=== PATIENT | female | born 1995 | race Caucasian/White ===

== ENCOUNTER 2021-04-12 12:22 | Emergency (ER) | payer SELFPAY | END 2021-04-12 15:19 | disposition left against medical advice (07) | LOC: CSHERS 12:22 | DX: Z53.21 Procedure and treatment not carried out due to patient leaving prior to being seen by health care provider (principal) ==

== ENCOUNTER 2024-07-04 15:16 | Outpatient (CLI) | payer OTHER ==
[2024-07-04 15:54] LABS: Hematocrit 40.2 % (34.9-44.5)
[2024-07-04 16:34] LABS: BHCG - Serum Negative (NEGATIVE); Pregs Control Background? CLEAR/WHITE (CLR/WHITE); Pregs Control Bar Appear? YES (CONTROL BAR)
== END 2024-07-04 15:17 | disposition home or self-care (01) ==
LOC: CSHLAB 15:16
PROVIDERS: ATTEND Otolaryngology Plastic Surgery within the Head & Neck
DX: Z01.812 Encounter for preprocedural laboratory examination (principal); J34.3 Hypertrophy of nasal turbinates; J32.2 Chronic ethmoidal sinusitis; J32.3 Chronic sphenoidal sinusitis
CPT/HCPCS: 84703; 85014

== ENCOUNTER 2024-07-10 08:39 | Day surgery (SDC) | payer OTHER ==
[2024-07-04 15:34] VITALS: BMI 48.8
[2024-07-10] MEDS ORDERED: Mupirocin 2% Ointment 22 GM Tube ONE (09:43)
[2024-07-10] MEDS ORDERED: AFRIN NASAL MIST 15 ML BOT ONE ×2 (09:43→10:43)
[2024-07-10] MEDS ORDERED: Lidocaine 1% w/Epinephrine 1:200K 30 ML VIAL ONE (09:43)
[2024-07-10] MEDS ORDERED: Rocuronium Bromide 10 MG/ML (10ML VIAL) ONE (10:32)
[2024-07-10] MEDS ORDERED: PROPOFOL 40 ML ONE (10:32)
[2024-07-10] MEDS ORDERED: Lidocaine 1% PF 5 ML VIAL ONE (10:32)
[2024-07-10] MEDS ORDERED: fentaNYL 50 mcg/mL 1 mL Vial ONE ×2 (10:32→12:38)
[2024-07-10] MEDS ORDERED: Ondansetron PF 4 MG/2 ML Vial ONE (10:32)
[2024-07-10] MEDS ORDERED: Dexamethasone 20 MG/5 ML VIAL ONE (10:32)
[2024-07-10] MEDS ORDERED: EPINEPHrine 1 MG/10 ML Abboject SYRINGE ONE (12:00)
[2024-07-10] MEDS ORDERED: Albuterol 2.5 MG (3 mL) NEB ONE (12:16)
== END 2024-07-10 13:35 | disposition home or self-care (01) ==
LOC: CSHSDC 08:39
PROVIDERS: ATTEND Otolaryngology Plastic Surgery within the Head & Neck
PROC: 099X8ZZ Drainage of Left Sphenoid Sinus, Via Natural or Artificial Opening Endoscopic (ICD-10-PCS; principal; 2024-07-10)
PROC: 099R8ZZ Drainage of Left Maxillary Sinus, Via Natural or Artificial Opening Endoscopic (ICD-10-PCS; principal; 2024-07-10)
PROC: 09TV8ZZ Resection of Left Ethmoid Sinus, Via Natural or Artificial Opening Endoscopic (ICD-10-PCS; principal; 2024-07-10)
PROC: 09TL8ZZ Resection of Nasal Turbinate, Via Natural or Artificial Opening Endoscopic (ICD-10-PCS; principal; 2024-07-10)
DX: J32.2 Chronic ethmoidal sinusitis (principal); J32.3 Chronic sphenoidal sinusitis; J34.3 Hypertrophy of nasal turbinates; J33.9 Nasal polyp, unspecified; J32.8 Other chronic sinusitis; J45.909 Unspecified asthma, uncomplicated; E78.00 Pure hypercholesterolemia, unspecified; E03.9 Hypothyroidism, unspecified; F32.A Depression, unspecified; F41.9 Anxiety disorder, unspecified; F17.210 Nicotine dependence, cigarettes, uncomplicated; Z90.49 Acquired absence of other specified parts of digestive tract; Z88.8 Allergy status to other drugs, medicaments and biological substances; Z79.2 Long term (current) use of antibiotics; Z79.899 Other long term (current) drug therapy
CPT/HCPCS: 87070; 87205; J0171; J1100; J2405; J2704; J3010; J7611